=== PATIENT | male | born 2000 | race Caucasian/White ===

== ENCOUNTER 2021-11-28 08:05 | Emergency (ER) | payer OTHER ==
[~2021-11-28] VITALS: Ht 180.3 cm; Wt 76.4 kg
[2021-11-28 08:06] VITALS: BP 135/60
[2021-11-28] MEDS ORDERED: PRED20TA PO (10:08)
[2021-11-28] MEDS ORDERED: predniSONE 20 MG TAB PO ONE (10:10)
== END 2021-11-28 10:23 | disposition home or self-care (01) ==
LOC: M ED 08:05
DX: L23.7 Allergic contact dermatitis due to plants, except food (principal); L55.0 Sunburn of first degree; F17.210 Nicotine dependence, cigarettes, uncomplicated
CPT/HCPCS: 99282; J7512